=== PATIENT | female | born 1990 | race Caucasian/White ===

== ENCOUNTER → 2020-09-11 09:04 | Outpatient (CLI) | payer BC, SELFPAY ==
--- NOTE | ~2020-09-11 | XR_ITS ---
EXAMINATION: XR pelvis 1-2V EXAM DATE: 09/11/2020 10:35 INDICATION: neck pain, back pain, right knee pain . Pelvic pain. TECHNIQUE: Pelvis frontal projection(s) obtained and reviewed. There is no prior study for compariso n. FINDINGS: There is minimal symmetric bilateral hip primary osteoarthritis. No evidence of hip avascu lar necrosis. Sacroiliac joints are unremarkable. There are no acute fractures or dislocations identi fied. There is no subcutaneous gas. The soft tissue is unremarkable. There are no radiopaque fore ign bodies. IMPRESSION: Minimal symmetric bilateral hip osteoarthritis. Reviewed, dictated and finalized at location B. LUTION SPECIALIST
--- NOTE | ~2020-09-11 | XR_ITS ---
EXAMINATION: XR thoracic spine 2V EXAM DATE: 09/11/2020 10:35 INDICATION: Midline back pain for 1.5 years. TECHNIQUE: Frontal and lateral projections of the thoracic spine as well as lateral swimmers projecti on of the upper thoracic spine for interpretation. There is no prior study for comparison. FINDINGS: There is minimal lower thoracic levoscoliosis. Minimal mid thoracic disc disease. The vert ebral body and disc heights are otherwise well maintained. The vertebral bodies are aligned in the AP dimension. Paraspinal soft tissue is unremarkable. IMPRESSION: 1. Minimal thoracic levoscoliosis. 2. Minimal mid thoracic disc disease. 3. No acute findings. Reviewed, dictated and finalized at location B. ER RIGGER
--- NOTE | ~2020-09-11 | XR_ITS ---
EXAMINATION: XR lumbar spine 2-3V EXAM DATE: 09/11/2020 10:35 INDICATION: Low back pain. TECHNIQUE: Lumber spine frontal, lateral, lateral L5-S1 projections for interpretation. There is no prior study for comparison. FINDINGS: Sacrum, sacroiliac joints, sacral arcuate lines are intact. The vertebral bodies are align ed in the AP dimension. Mild loss of L5-S1 disc height. Vertebral body heights are maintained. Small Schmorl's nodes at some of the endplates. L5 limbus vertebral body. Mild lumbar facet arthropathy. Pa raspinal soft tissue is unremarkable. IMPRESSION: Mild lumbar spondylosis. Reviewed, dictated and finalized at location B. SPLITTER IMPRESSION: Mild lumbar spondylosis.
--- NOTE | ~2020-09-11 | XR_ITS ---
EXAMINATION: XR_CERV2-3V_CR EXAM DATE: 09/11/2020 10:35 INDICATION: Medial cervical spine pain for one year. TECHNIQUE: Cervical spine frontal, lateral, lateral swimmers, and open-mouth odontoid projections. N o prior study. FINDINGS: There is evidence of minimal cervical facet arthropathy. No suspicion of neural foraminal s tenosis. There is no evidence of acute cervical fracture. The odontoid process is intact. Pre-dens space is normal. Prevertebral soft tissue is normal. There are no soft tissue abnormalities identif ied. Short C7 ribs, congenital variant. The vertebral bodies are aligned. Vertebral body and disc h eights are well-maintained. IMPRESSION: 1. Minimal cervical facet arthropathy. 2. Short C7 ribs. Reviewed, dictated and finalized at location B. MENTATION WRITER
--- NOTE | ~2020-09-11 | XR_ITS ---
EXAMINATION: XR knee RT min 4V DATE: 09/11/2020 10:35 INDICATION: Right knee pain. TECHNIQUE: 4 views of right knee were obtained. COMPARISON: None. FINDINGS: Bone alignment is normal. No fracture. There is mild osteoarthritis of patellofemoral opal rtment characterized by a tiny marginal osteophyte. No knee joint effusion. IMPRESSION: 1. Mild right knee osteoarthritis. Reviewed, dictated and finalized at location A. FORCED CONCRETE INSPECTOR
== END ==
PROVIDERS: Visit Provider Chiropractor
DX: M25.551 Pain in right hip (principal); M25.552 Pain in left hip; M47.896 Other spondylosis, lumbar region; M51.34 Other intervertebral disc degeneration, thoracic region; M17.11 Unilateral primary osteoarthritis, right knee
CPT/HCPCS: 72040; 72070; 72100; 72170; 73564

== ENCOUNTER 2024-02-02 13:47 | Outpatient (CLI) | payer BC, SELFPAY ==
--- NOTE | ~2024-02-02 | US_ITS ---
EXAMINATION: US OB transvaginal DATE: 02/02/2024 14:22 INDICATION: Confirmation of viability during first trimester . TECHNIQUE: Real-time pelvic ultrasound utilizing transvaginal probe was performed. The interpreting r adiologist was not present for the study. COMPARISON: None. FINDINGS: The uterus measures 10.7 x 6.1 x 7.1 cm. There is an intrauterine gestational sac. A yolk sac and fe beata pole are identified. The crown rump length measures 1.7 cm, which correlates with an estimated ge stational age of 8 weeks and 1 days. heart motion is identified measuring 172 beats per minute (bpm) by M-mode Doppler. The right ovary measures 3.5 x 2.0 x 3.7 cm. The left ovary measures 3.8 x 3.5 x 4.1 cm. 2.2 cm hypoe choic anechoic likely corpus luteum cyst in the left ovary. There is no free fluid in the pelvis. IMPRESSION: 1. Single living fetus with heart rate of 172 bpm. 2. Gestational age by ultrasound of 8 weeks 1 day(s) +/- 5 day(s) with ultrasound estimated date of delivery (ALYCE) of 09/12/2024. Reviewed, dictated and finalized at location A. IMPRESSION: 1. Single living fetus with heart rate of 172 bpm. 2. Gestational age by ultrasound of 8 weeks 1 day(s) +/- 5 day(s) with ultraso und estimated date of delivery (ALYCE) of 09/12/2024.
== END 2024-02-02 13:48 ==
LOC: MICIMG 13:48
PROVIDERS: PCP Advanced Practice Midwife; Visit Provider Advanced Practice Midwife
DX: O36.80X0 Pregnancy with inconclusive fetal viability, not applicable or unspecified (principal); Z3A.08 8 weeks gestation of pregnancy
CPT/HCPCS: 76817

== ENCOUNTER 2024-04-12 12:48 | Outpatient (CLI) | payer BC, SELFPAY ==
--- NOTE | ~2024-04-12 | US_ITS ---
EXAMINATION: US OB /maternal detail DATE: 04/12/2024 13:38 INDICATION: anatomic survey. TECHNIQUE: Real-time ultrasound of the pelvis was performed. COMPARISON: Ultrasound 02/02/2024 FINDINGS: There is a single living fetus in variable presentation. The placenta is anterior, 4.1 cm from the c ervix. The cervical length is 5.0 cm on transabdominal images, which is normal. heart rate is 1 48 beats per minute (bpm). The amniotic fluid volume is subjectively normal. The following biometric data were obtained: Biparietal diameter (BPD): 4.1 cm; head circumference (HC): 15.5 cm; abdominal circumference (AC): 12 .6 cm; femur length (FL): 2.7 cm. These measurements are concordant. Estimated weight is 228 g +/- 34 g, which correlates with the 47th percentile when 09/12/24 is us ed as estimated date of delivery. As single measurements, these parameters are each equal to the following estimated gestational ages: BPD: 18 weeks 4 days. HC: 18 weeks 3 days. AC: 18 weeks 1 days. FL: 18 weeks 1 days. estimated gestational age based solely on measurements from this exam is 18 weeks 2 days +/- 1 weeks 2 days. The cerebral ventricles, cerebellum, cisterna magna, nuchal fold, and spine are normal. The heart is normal. The diaphragm, stomach, kidneys, and bladder are normal. There are two umbilical arteries to yield a 3-vessel cord. The cord insertion is normal. IMPRESSION: 1. Single living fetus in variable presentation. 2. Estimated weight is 228 g +/- 34 g, which correlates with the 47th percentile when 09/12/24 i s used as estimated date of delivery. This date was set by ultrasound on 02/02/2024. 3. Normal anatomic survey. Reviewed, dictated and finalized at location A. IMPRESSION: 1. Single living fetus in variable presentation. 2. Estimated weight is 228 g +/- 34 g, which correlates with the 47th pe rcentile when 09/12/24 is used as estimated date of delivery. This date was set b y ultrasound on 02/02/2024. 3. Normal anatomic survey.
== END 2024-04-12 12:49 | disposition home or self-care (01) ==
LOC: MICIMG 12:48
PROVIDERS: PCP Obstetrics & Gynecology Gynecology; Visit Provider Obstetrics & Gynecology Gynecology
DX: Z36.9 Encounter for antenatal screening, unspecified (principal)
CPT/HCPCS: 76805

== ENCOUNTER 2024-09-05 15:51 | Outpatient (CLI) | payer BC, SELFPAY ==
[2024-09-05] VITALS (7 sets, daily range): BP systolic 122–138; BP diastolic 71–85; PULSE 82–91
--- OUTSIDE RECORDS SUMMARY | 2024-09-05 15:59 | XMS_ITS | Clinical Summary ---
Author Organization [facility] Care Team Providers Care Research Programmer Name Role Phone Unavailable Primary Care Provider Unavailabl e Social History Tobacco Use Types Packs/Day Years Used Date Smoking Tobacco: Never Assessed Comments Unknown Sex and Gender Information Value Date Recorded Sex Assigned at Not on file Legal Sex Female 2:10 PM CDT Gender Identity Not on file Sexual Orientation Not on file Plan of Treatment Health Maintenance Due Date Last Done Comments Hepatitis C Virus (HCV) Screening 1992 TdaP Immunization 1992 Hepatitis B Immunization (1 of 3 - 19+ 3-dose series) 12/19/2011 Pap Smear 2013 Cervical Cancer Screening (CCS) 2022 HPV/Cotest 2022 Influenza Immunization (#1) 2024 SARS-COV-2 Immunization ( season) 2024 12/24/2020, 11/27/2020 Respiratory Syncytial Virus (RSV) Immunization (Adult) (1 - 1-dose 75+ series) 12/19/2067 Meningococcal Immunization (ACWY) Aged Out No longer eligible b ased on patient's age to complete this topic Pneumococcal Immunization Combined Aged Out No longer eligible b ased on patient's age to complete this topic Rotavirus Immunization Aged Out No lo nger eligible based on patient's age to complete this topic
[2024-09-05 16:23] LABS: Add Urine Microscopic? NO; Appearance Urine Clear (Clear); Bilirubin Urine Negative (Negative); Blood Urine Negative (Negative); Color Urine Yellow (Yellow); Glucose Urine UA Negative (Negative); Ketones Urine Negative (Negative); Leukocyte Esterase Ur Negative LEU/UL (Negative); Nitrate Urine Negative (Negative); Protein Urine Negative (Negative); Specific Grav Ur 1.004 (1.001-1.035); Urobilinogen Urine 0.2 mg/dL (<2.0); pH Urine 6.5 (5.0-9.0)
[2024-09-05 16:25] LABS: Basophils Percent Auto 0.3 % (0.2-1.2); Eosinophils Absolute Auto 0.1 K/mm3 (0-0.3); Eosinophils Percent Auto 0.9 % (0-4.4); Hemoglobin 11.8 g/dL (12.0-15.0); Immature Granulocyte Absolute 0.14 K/mm3 (0.00-0.031); Immature Granulocyte Percent A 1.1 % (0-0.5); Lymphocytes Percent Auto 14.7 % (18.3-44.2); Mean Corpuscular HGB Conc 33.7 g/dl (32-36); Mean Corpuscular Hemoglobin 29.8 pg (26-34); Mean Corpuscular Volume 88.4 fl (80-100); Mean Platelet Volume 10.4 fl (7.4-10.4); Monocytes Absolute Auto 0.7 K/mm3 (0.1-0.6); Monocytes Percent Auto 5.4 % (2.6-8.5); Neutrophils Percent Auto 77.6 % (45.5-73.1); Platelet Count Result 223 k/mm3 (150-375); Red Blood Count 3.96 M/mm3 (4.2-5.4); White Blood Count 12.9 K/mm3 (4.5-10.0)
[2024-09-05 16:38] LABS: Alanine Aminotransferase 14 U/L (6-35); Albumin Level 3.9 g/dL (3.5-5.1); Alkaline Phosphatase 89 U/L (38-126); Anion Gap 12 mmol/L (4-12); Aspartate Amino Transferase 14 U/L (14-36); Bilirubin,Total 0.3 mg/dL (0.2-1.3); Blood Urea Nitrogen 10 mg/dL (7-17); Calcium 9.9 mg/dL (8.4-10.2); Carbon Dioxide 18 mmol/L (22-30); Chloride 105 mmol/L (98-107); Estimated Glomerular Filt Rate > 60; Glucose 89 mg/dL (65-110); Potassium 3.8 mmol/L (3.4-5.0); Sodium 135 mmol/L (137-145); Uric Acid 5.1 mg/dL (2.5-7.5)
[2024-09-05 16:57] LABS: Creatinine Urine 16.2 mg/dL; Total Protein Urine Random 15 mg/dL; Ur Ttl Prot Creatinine Ratio 0.93 mg/mg (0-0.20)
== END 2024-09-05 17:23 | disposition home or self-care (01) ==
LOC: ANHOBOP 15:57 → ANHLDR 15:59
PROVIDERS: Visit Provider Obstetrics & Gynecology Gynecology
DX: O13.9 Gestational [pregnancy-induced] hypertension without significant proteinuria, unspecified trimester (principal); Z3A.00 Weeks of gestation of pregnancy not specified
CPT/HCPCS: 36415; 59025; 80053; 81003; 82570; 84156; 84550; 85025; 99199

== ENCOUNTER 2024-09-06 18:23 | Outpatient (NON) | payer BC, SELFPAY ==
--- OUTSIDE RECORDS SUMMARY | 2024-09-06 18:32 | XMS_ITS | Clinical Summary ---
Author Organization [facility] Care Team Providers Care Cartridge Loading Operator Name Role Phone Unavailable Primary Care Provider [...]
[2024-09-06 19:02] VITALS: BMI 36.4
[2024-09-06 21:03] LABS: Collection Time Urine 24 HOURS
[2024-09-06 21:11] LABS: Total Volume 24 Hour Urine 3750 ml
[2024-09-06 21:18] LABS: Creatinine Clearance Urine 122.4 ml/min (75-125); Creatinine Urine 36.9 mg/dL; Patient Weight 250 Lbs; Total Protein Urine Random 15 mg/dL
[2024-09-06 22:28] LABS: Total Protein Urine 24 Hr 562 mg/24hr (28-141)
[2024-09-07 18:10] LABS: Specific Gravity Ur 1.015
== END 2024-09-06 18:24 | disposition home or self-care (01) ==
LOC: ANHOBOP 18:31
PROVIDERS: Visit Provider Obstetrics & Gynecology Gynecology
DX: O13.9 Gestational [pregnancy-induced] hypertension without significant proteinuria, unspecified trimester (principal); Z3A.00 Weeks of gestation of pregnancy not specified
CPT/HCPCS: 81050; 82575; 84156

== ENCOUNTER 2024-09-09 15:52 | Inpatient (IN) | payer BC, SELFPAY ==
[2024-09-09] VITALS (12 sets, daily range): BP systolic 121–145; BP diastolic 73–98; PULSE 77–95; TEMP 36.7–36.9; BMI 37.0
--- OUTSIDE RECORDS SUMMARY | 2024-09-09 16:27 | XMS_ITS | Clinical Summary ---
Author Organization [facility] Care Team Providers Care Head Of It Name Role Phone Unavailable Primary Care Provider [...]
[2024-09-09 16:47] LABS: Basophils Percent Auto 0.3 % (0.2-1.2); Eosinophils Absolute Auto 0.2 K/mm3 (0-0.3); Eosinophils Percent Auto 1.5 % (0-4.4); Hematocrit 32.4 % (37.0-47.0); Hemoglobin 10.9 g/dL (12.0-15.0); Immature Granulocyte Absolute 0.13 K/mm3 (0.00-0.031); Lymphocytes Absolute Auto 1.86 K/mm3 (0.9-3.2); Lymphocytes Percent Auto 14.9 % (18.3-44.2); Mean Corpuscular HGB Conc 33.6 g/dl (32-36); Mean Corpuscular Hemoglobin 29.5 pg (26-34); Mean Corpuscular Volume 87.6 fl (80-100); Mean Platelet Volume 10.6 fl (7.4-10.4); Monocytes Absolute Auto 0.7 K/mm3 (0.1-0.6); Monocytes Percent Auto 5.3 % (2.6-8.5); Neutrophils Absolute Auto 9.6 K/mm3 (1.3-6.7); Platelet Count Result 232 k/mm3 (150-375); Red Cell Distribution Width 13.2 % (11.5-14.5); White Blood Count 12.5 K/mm3 (4.5-10.0)
[2024-09-09] MEDS: miSOPROStol 25 MCG TABLET BUCCAL ×2 (17:03→21:03)
--- NOTE | 2024-09-09 17:05 | LDADM ---
This patient, Caitlin Jacob, was admitted to Labor/Delivery/Recovery 107 on 09/09/24 at 15:52. Plans for labor, pain management and were discussed with patient. Patient/family oriented to hospital policies and general routines including ID bracelet, bed and alarms, visiting hours, pain management, procedures, bathroom and other care routines, personal items, smoking policy, room service/diet and guest tray routines, infant security routines, and visiting hours. Patient/Family are encouraged to report perceived risks to care and to ask questions if they do not understand what they are told or what they should do. See [facility]BIX for further documentation.
[2024-09-09 17:41] LABS: HIV 1/2 Ab P24 Ag Result Negative (Negative)
[2024-09-09 18:30] LABS: Rapid Plasma Reagin Non-Reactive (NonReactive)
[2024-09-09 22:03] LABS: Alanine Aminotransferase 15 U/L (6-35); Albumin Level 3.5 g/dL (3.5-5.1); Alkaline Phosphatase 93 U/L (38-126); Anion Gap 10 mmol/L (4-12); Aspartate Amino Transferase 17 U/L (14-36); Bilirubin,Total 0.3 mg/dL (0.2-1.3); Blood Urea Nitrogen 11 mg/dL (7-17); Calcium 9.4 mg/dL (8.4-10.2); Carbon Dioxide 14 mmol/L (22-30); Chloride 109 mmol/L (98-107); Estimated CRCL calculation 155 ml/min; Estimated Glomerular Filt Rate > 60; Glucose 101 mg/dL (65-110); Potassium 3.8 mmol/L (3.4-5.0); Sodium 133 mmol/L (137-145)
[2024-09-10] VITALS (244 sets, daily range): BP systolic 101–180; BP diastolic 45–87; PULSE 51–157; RESP 16; TEMP 36.2–37.3; O2SAT 82–100
[2024-09-10] MEDS: miSOPROStol 25 MCG TABLET BUCCAL (01:00)
[2024-09-10] MEDS: LACTATED RINGERS 1,000 ML 125 ML IV CONT ×4 (05:12→21:21)
[2024-09-10] MEDS: OXYTOCIN 30 UNITS/NS 500 ML 30 UNITS/500 ML BAG 6 UNITS IV CONT (05:13)
[2024-09-10] MEDS: fentaNYL CITRATE INJ (*CRX) 100 MCG/2 ML VIAL 50 MCG IV PUSH (05:52)
[2024-09-10] MEDS: fentaNYL CITRATE INJ (*CRX) 100 MCG/2 ML VIAL IV PUSH (07:04)
--- NOTE | 2024-09-10 07:32 | WPDANESEPPF ---
Anes - Initial Pre Proc Eval Procedure: Labor Epidural Date/Time: 09/10/24 07:32 Surgeon: Flory Klein MD Pre Op Diagnosis: IOL Patient Data Age: 33 Gender: F Height: 1.75 m Weight: 113.6 kg Last Vital Signs Temp 36.2 C L 09/10/24 06:18 Pulse 111 H 09/10/24 07:03 BP 122/45 L 09/10/24 07:03 O2 Del Method Room Air 09/09/24 18:34 Allergies Allergy/AdvReac Type Severity Reaction Status Date / Time amoxicillin Allergy Intermediate Rash Verified 09/09/24 18:32 Penicillins Allergy Unknown Rash Verified 09/09/24 18:32 azithromycin (From Zithromax Allergy Rash Verified 09/09/24 18:32 Z-Jaylon) Home Medications ?Medication ?Instructions ?Recorded ?Confirmed ?Type aspirin 81 mg capsule 81 mg PO DAILY 08/13/24 09/09/24 History calcium carb-ergocalciferol (vit 1 tablet PO DAILY 08/13/24 09/09/24 History D2) 600 mg calcium-200 unit tablet loratadine 10 mg capsule (Allergy 10 mg PO DAILY 08/13/24 09/09/24 History Relief (loratadine)) magnesium glycinate 400 mg PO DAILY 08/13/24 09/09/24 History vit no.95-ferrous 1 tablet PO DAILY 08/13/24 09/09/24 History fumarate 28 mg-folic acid 800 mcg tablet () Laboratory Tests 09/09/24 09/09/24 16:10 16:33 WBC 12.5 H K/mm3 (4.5-10.0) RBC 3.70 L M/mm3 (4.2-5.4) Hgb 10.9 L g/dL (12.0-15.0) Hct 32.4 L % (37.0-47.0) MCV 87.6 fl (80-100) MCH 29.5 pg (26-34) MCHC 33.6 g/dl (32-36) RDW 13.2 % (11.5-14.5) Plt Count 232 k/mm3 (150-375) MPV 10.6 H fl (7.4-10.4) Immature Gran % (Auto) 1.0 H % (0-0.5) Neut % (Auto) 77.0 H % (45.5-73.1) Lymph % (Auto) 14.9 L % (18.3-44.2) [place] % (Auto) 5.3 % (2.6-8.5) Eos % (Auto) 1.5 % (0-4.4) Baso % (Auto) 0.3 % (0.2-1.2) Lymph # (Auto) 1.86 K/mm3 (0.9-3.2) [place] # (Auto) 0.7 H K/mm3 (0.1-0.6) Eos # (Auto) 0.2 K/mm3 (0-0.3) Baso # (Auto) 0.0 K/mm3 (0.0-0.1) Abs Immat Gran (auto) 0.13 H K/mm3 (0.00-0.031) Absolute Neuts (auto) 9.6 H K/mm3 (1.3-6.7) Absolute Nucleated RBC 0.000 K/mm3 (0.0-0.012) Nucleated RBC % 0.0 % (0.0-0.2) Sodium 133 L mmol/L (137-145) Potassium 3.8 mmol/L (3.4-5.0) Chloride 109 H mmol/L (98-107) Carbon Dioxide 14 L mmol/L (22-30) Anion Gap 10 mmol/L (4-12) BUN 11 mg/dL (7-17) Creatinine 0.60 L mg/dL (0.7-1.0) Estim Creat Clear Calc 155 ml/min Estimated GFR > 60 (59 - ) Glucose 101 mg/dL (65-110) Uric Acid 6.0 mg/dL (2.5-7.5) Calcium 9.4 mg/dL (8.4-10.2) Total Bilirubin 0.3 mg/dL (0.2-1.3) AST 17 U/L (14-36) ALT 15 U/L (6-35) Alkaline Phosphatase 93 U/L (38-126) Total Protein 7.0 g/dL (6.3-8.2) Albumin 3.5 g/dL (3.5-5.1) RPR Non-reactive (NonReactive) HIV 1&2 Ab/P24 Ag 4thGn Negative (Negative) Blood Type A Positive Antibody Screen Negative : gestational age (ALYCE 09/12/24) Patient hx anesthesia problems: none Family hx anesthesia problems: none Results Review: All pre-operative results and documents have been reviewed as part of the pre-operative evaluation. [facility] Family History Family History Father Kidney failure Social History Social History Smoking status: Never smoker Second hand tobacco smoke exposure: Yes Alcohol intake: current Substance use: never Do You Feel Safe in your Home?: Yes Lack of Transportation: No Lack of Food: Never True Current Housing: I Have Housing Concerned About Future Housing: No Difficulty Paying Gas/Electric Bills: No Difficulty Paying for Meds: No Currently Unemployed: No Education: Trade/Vocational Certificate Difficulty w/ Childcare or Family Care: No Spiritual care concerns: No Anes - Eval Final PreProcedure Day of Procedure 09/10/24 07:32 Patient weight: obese Heart: regular rate and rhythm Lungs: normal air movement Airway: Mallampati scale Neurological: alert and oriented Last oral intake: >/= 8 hours ASA classification: II Emergent: no Anesthetic plan: proceed Anesthesia type and monitoring: regional epidural Results Review: All pre-operative results and documents have been reviewed as part of the pre-operative evaluation. Informed Consent: The patient's anesthetic plan and its attendant risks and benefits were discussed with the patient/family/POA. Questions were solicited and answers provided to the satisfaction of the patient/family/POA.
--- NOTE | 2024-09-10 07:36 | WPDOBADMIT ---
Obstetrics - Admit Note Admission Note: record reviewed. No pertinent additions to the history and/or any subsequent changes in the physical findings that are not consistent with the expected course of the were found. Additions to the history and/or subsequent changes in the physical findings follow. Here for MIL for preeclampsia. BP stable. No PIH sx. cytotec overnight and now in labor and SROM. Cervix last check 1-2 per RN. Continue Pitocin. Prepping for epidural now as painful contractions. FHTs Cat. I.
--- NOTE | 2024-09-10 12:28 | PM.OBPNLAB ---
Pain Control Date/time seen: 09/10/24 12:28 Pain control: epidural Pelvic Exam Dilation (cm): 3 (3-4) Effacement (%): 80 station: -2 Amniotic membrane status: Ruptured (AROM forebag with large mucus and clear fluid) Contractions Monitor mode: External Contraction pattern: Regular Status status: Category l Assessment and Plan Assessment: induction ongoing Plan: continuous present management
[2024-09-10] MEDS: ACETAMINOPHEN 500 MG TABLET 1000 MG PO (19:29)
[2024-09-10] MEDS: CALCIUM CARBONATE (TUMS) 500 MG (200 MG ELEMENTAL) PO (22:28)
[2024-09-11] VITALS (42 sets, daily range): BP systolic 73–139; BP diastolic 48–92; PULSE 66–113; RESP 16–18; TEMP 36.4–37.3; O2SAT 95–100
[2024-09-11] MEDS: ceFAZolin 3 GM/D5W 100 ML 100 ML IVPB (01:07)
--- NOTE | 2024-09-11 02:29 | PM.OBPRVD ---
OB - Vaginal Delivery Note Procedure Delivery date: 09/11/24 Events: Preeclampsia w/o severe features Intrapartal Events: Arrest of Descent Induction method: Per Misoprostol Protocol and Per Pitocin Protocol Delivery monitor: External FHT and Internal Uterine Route of delivery: Episiotomy description: None Laceration Description: Perineal - 2nd Degree (Bilateral deep vaginal sulcus laceration meeting in middle for Y laceration) Delivery repair: vicryl (3-0) Specimen: Yes (placenta) Quantitative Blood Loss (ml): 600 (Most blood from laceration. Uterus firm throughout.) Anesthesia type: Epidural Disposition: Floor Complications: No immediate complications Narrative: Patient with prolonged pushing phase. Pushed for 1 1/2 hours x 2 with rest in between. Then a longer rest and 1 hour pushing. Most descent in last hour. Baby Date of : 09/11/24 Gestational Age by Date: 39 Infant gender: Male Weight (pounds): 8 Weight (ounces): 6 presentation: vertex position: Left Occiput Posterior Placenta delivery description: Spontaneous Cord Vessel Description: 3 Vessels and Delayed Cord Clamping score one minute: 8 score five minutes: 9
--- NOTE | 2024-09-11 02:33 | PM.OBDSVD ---
DS: Admitting Diagnosis Discharge Date 09/14/24 Admitting Diagnosis IUP 39 4/7 for MIL preeclampsia DS: Discharge Diagnosis Discharge Diagnosis (1) (normal spontaneous vaginal delivery): Code(s): O80 - Encounter for full-term uncomplicated delivery Status: Acute (2) Preeclampsia: Code(s): O14.90 - Unspecified pre-eclampsia, unspecified trimester Status: Acute OB - DS: Summary OB Procedures : NST, PIH Mgmt and Ultrasound OB Procedures Intrapartum: Spontaneous Vag Delivery OB Procedures: : None Peripartum Data Delivery Method: Natural Vaginal Laceration Description: Perineal - 2nd Degree (Bilateral deep vaginal sulcus laceration meeting in middle for Y laceration) Episiotomy description: None complications: none Status at Discharge Functional status at discharge: independent ambulation Overall status at discharge: patient is progressing back to baseline Time Spent with Patient Time attestation: Total time spent providing and/or coordinating discharge services: Discharge Plan Discharge Attending physician on discharge: Flory Klein Discharging Clinician: Flory Klein Anticipated Discharge Date/Time: 09/13/24 02:35 Patient Disposition: Home, Self-Care Activity: may shower and pelvic rest Diet: regular Patient Instructions: Antibiotic Form Patient Language: Bulgarian Stand Alone Forms: General Discharge Information Follow-up/Referrals: Flory Klein MD [Physician] - 1 Week (6 weeks) Discharge Medications: Continued magnesium glycinate 100 mg magnesium capsule 400 mg PO DAILY calcium carbonate-vitamin D2 600 mg calcium- 200 unit tablet 1 tablet PO DAILY PNV cmb#95-ferrous fumarate-FA [] 28 mg iron- 800 mcg tablet 1 tablet PO DAILY Allergy Relief (loratadine) 10 mg capsule 10 mg PO DAILY Discontinued aspirin 81 mg capsule 81 mg PO DAILY Date of admission: 09/09/24 15:52 Primary Care Provider: UNKNOWN,DOCTOR Admitting Provider: Flory Klein Attending physician on admission: Flory Klein Condition: Stable
[2024-09-11] MEDS: OXYTOCIN 30 UNITS/NS 500 ML 30 UNITS/500 ML BAG 125 UNITS IV CONT (02:36)
[2024-09-11] MEDS: WITCH HAZEL 40 PADS 1 PAD TOPICAL ×2 (04:56→19:02)
[2024-09-11] MEDS: BENZOCAINE 20% AER SPR (*SP) 56 GM CAN 1 SPRAY TOPICAL (04:56)
[2024-09-11] MEDS: IBUPROFEN 600 MG TABLET PO ×2 (05:44→19:03)
--- NOTE | 2024-09-11 08:54 | PC.NURSE ---
0620 Introductions were made, then consulted with patient to assess needs related to . Mother led the conversation with her?plans to feed?her and the?experience so far. Encouraged understanding of the benefits of skin to skin (demonstrating unwrapping infant and placing upright on her chest), stimulating with massage touch, changing positions to encourage wakefulness, how to watch for early feeding cues, responsive feeding, feeding on demand (aiming for 8-12 times in 24 hours, about every 2-3 hours), milk production, building/maintaining a milk supply, duration of feeding, signs of adequate intake/output and how to record on the feeding sheet. Mother works well with her with encouragement and education. Reviewed positioning and ear, shoulder, hip alignment, supporting the breast to facilitate a deep latch, asymmetrical latch (off-center), leading with the chin with a big, open, wide gape and body close to mother. Mother had used nipple shield downstairs in labor per primary night RN. This morning @ 0635 feeding, we attempted to latch baby without the shield but mother's nipples are very soft and go inward when baby attempts to latch, he is not able to get ahold of nipple. Baby latches well with shield and mother can feel tugging and pulling at both nipples. RN advised mother of nipple shield policy, she did bring her own breast pump if needed. After baby was on her left breast with the shield for a few minutes, we did attempt to re-latch without the shield but baby was unable, shield reapplied. Education given to the mother of how to visualize the suckling (with good rocking jaw motion), swallows (dropping of the lower jaw) and how to listen for drinking at the breast (the ka sound). was [able] to maintain latch without pain to mother protecting the nipple with optimal positioning and latching. Reviewed comfort measures of healing with a warm, wet washcloth to rinse breast, then leave open to air-dry, good handwashing when or touching the breast/nipples to prevent infection. Mother voiced understanding of skin to skin, stimulating with massage touch, responsive feedings, hand expressed colostrum, talking to to encourage if it has been 2 -2.5 hours since the start of the last , to call if does not latch, or if there is discomfort with . Resources used for education were facilitated with the [visual educational handouts/ tool/mom and baby guide], Inpatient/outpatient resources provided with business card, feeding sheet, name written on the communication board, and the mom/baby guide. Parents voiced understanding of information, demonstrated learning and will call if there is a request for assistance. Reported to the Primary RN.
--- NOTE | 2024-09-11 08:56 | PC.NURSE ---
On 09/11/24, the student, Ming Escalona, provided care and completed [facility] documentation on this patient. I have reviewed the student's documentation and agree with the findings.
[2024-09-11] MEDS: ACETAMINOPHEN 325 MG TABLET 650 MG PO (10:10)
[2024-09-11] MEDS: MULTIVIT/MIN/PREN/FOL AC/IRON TABLET 1 TAB PO (10:11)
[2024-09-11] MEDS: DOCUSATE SODIUM 100 MG CAPSULE PO ×2 (10:11→19:02)
--- NOTE | 2024-09-11 15:30 | PC.NURSE ---
1135 Mother called RN to room to assist with latch, baby attempted for a few mins on the left breast in football w/o the nipple shield and could not maintain his latch, nipple everted but soft. Nipple shield applied and baby latched optimally, RN encouraged mother to switch breasts after 15 mins and call out if she was not able to latch baby to her right breast. Nipple shield handout and admission packet provided to mother. Reviewed good handwashing, cleaning the nipple shield and the appropriate way to apply and use as a tool. Discussed with mom the nipple shield precautions, possible complications associated with the risks and benefits. Reviewed practicing with a nipple shield, then without and how to protect the milk supply and production. Mom and baby guide referred to as a resource for outpatient services, community resources and when to call a provider. Mom voiced understanding of the importance of hand expression, nipple stimulation and initiating a pumping schedule if infant continues to nurse with the shield. Reported to the Primary RN. 1220 RN returned to room, mother never called out. Per mother baby nursed on her left breast with the shield for 15 mins and she was holding baby skin to skin, she had not attempted to latch on the other breast. RN offered to assist her, baby was sleepy, attempted with and w/o the shield for 5 mins or so. RN reminded mother that this was the third time that she had used the nipple shield and she should start using the breast pump per hospital policy to protect her milk supply. Per mother she would like to eat her lunch and will then call out to start pumping. She does have her own breast pump at home but would like to use the hospital pump while here. 1350 RN took breast pump, kit, handouts and measuring tool into the room to start mother pumping, she still had not called out from finishing her lunch. She now states that she has family coming and wishes to start using the breast pump after her visitors leave. 1425 Primary RN in room, advised mother it was time to feed the baby. Visitors left while mother was going to feed. RN called to room to assist with latch. Baby attempted with very good effort to latch to mother's left breast in football position for a few mins, mother was leaking colostrum. Baby unable to maintain latch and nipple shield applied, baby then latched optimally. 1500 RN to room, mother called for assistance to help swaddle the baby. Per mom, baby nursed with the shield for 25 mins, her family is in the room now and she will pump after they leave.
--- NOTE | 2024-09-11 17:57 | PC.NURSE ---
1705 RN went in room, family had left. Mother ready to set up breast pump but baby is now due to nurse. RN to set up pump so that it is ready to use after she breast feeds. Instructions given on cleaning, care, usage, that there should be no pain, pumping schedule for milk production, collection, and storage of human milk. Patient was assessed for correct placement, flange size (Right nipple: 22mm, using size 27 flange/Left nipple: 24mm, using size 30 flange), to pump for comfort and nipple stretching/stimulation for adequate milk production every 3 hours (8 times in 24 hours) 1-2 times at night. Parents are encouraged to record the pumping schedule on the feeding sheet.?Mother voiced understanding of the education shared along with mom/baby guide and the pump measurement, flange fit handout for additional resource information. RN assisted mother with latch, leaking colostrum, baby gave great effort and is improving with each feeding with attempting to latch without the nipple shield, mother attempted for about 5 mins without and then baby latched optimally with the shield, RN and mother heard many swallows. Reported to the Primary RN.
[2024-09-11] MEDS: SIMETHICONE 80 MG TAB.CHEW PO (19:02)
[2024-09-12] VITALS (13 sets, daily range): BP systolic 110–128; BP diastolic 63–82; PULSE 69–92; RESP 16–83; TEMP 36.3–37.2; O2SAT 98–99
[2024-09-12 06:02] LABS: Hematocrit 21.7 % (37.0-47.0); Hemoglobin 7.2 g/dL (12.0-15.0)
--- NOTE | 2024-09-12 07:48 | PM.OBPNVD ---
OB - PN: Subj Subjective Date/time seen: 09/12/24 07:48 Interval history: tired and weak but not dizzy with ambulation Patient comments: no complaints and pain well controlled [place] baby status: doing well OB - PN: Obj Data Labs 09/12/24 04:55 09/09/24 16:10 Labs: Laboratory Results - last 24 hr 09/12/24 04:55 Hgb 7.2 L D Hct 21.7 L OB - PN A/P Assessment and Plan (1) Preeclampsia: Code(s): O14.90 - Unspecified pre-eclampsia, unspecified trimester Status: Acute Assessment and Plan: BP improved this last 12 hours not a good diuresis yet (2) Anemia: Code(s): D64.9 - Anemia, unspecified Status: Acute Assessment and Plan: Reviewed H/H and option of blood transfusion. Pros/cons discussed. Will transfuse 2 units PRBC Plan day: 1 Time Spent With Patient Time: Total time spent is greater than 50% in coordination of care (as documented) at patient's floor/unit and/or counseling patient: Exam : Bimanual exam- vagina & uterus: other (Uterus firm, nt @U)
[2024-09-12] MEDS: ACETAMINOPHEN 325 MG TABLET 650 MG PO (08:30)
[2024-09-12] MEDS: SODIUM CHLORIDE 0.9% IV 250 ML 30 ML IV CONT (08:32)
[2024-09-12] MEDS: MULTIVIT/MIN/PREN/FOL AC/IRON TABLET 1 TAB PO (08:32)
[2024-09-12] MEDS: POLYSACCHARIDE IRON COMPLEX 150 MG CAPSULE PO (08:32)
[2024-09-12] MEDS: DOCUSATE SODIUM 100 MG CAPSULE PO (08:32)
[2024-09-12] MEDS: IBUPROFEN 600 MG TABLET PO (08:38)
[2024-09-13] VITALS (7 sets, daily range): BP systolic 117–137; BP diastolic 75–92; PULSE 70–92; RESP 16–20; TEMP 36.2–36.8; O2SAT 97–99
--- NOTE | 2024-09-13 08:10 | PC.NURSE ---
Request by primary RN to discuss feeding plan with patient due to 10% weight loss and physician order. Patient states that baby is latching well and not using the nipple shield and that she does not intend to give any formula supplementation. Patient says she gets a good amount of milk with pumping and is leaking milk. Reported this back to the primary RN and medical coordinator pesticide use and told patient that we can review feeding again once she has spoken with the baby's doctor.
[2024-09-13] MEDS: DOCUSATE SODIUM 100 MG CAPSULE PO ×2 (08:11→16:56)
[2024-09-13] MEDS: POLYSACCHARIDE IRON COMPLEX 150 MG CAPSULE PO ×2 (08:11→16:56)
[2024-09-13] MEDS: MULTIVIT/MIN/PREN/FOL AC/IRON TABLET 1 TAB PO (08:11)
[2024-09-13 08:32] LABS: Hematocrit 29.2 % (37.0-47.0); Hemoglobin 9.6 g/dL (12.0-15.0); Mean Corpuscular HGB Conc 32.9 g/dl (32-36); Mean Corpuscular Hemoglobin 28.7 pg (26-34); Mean Corpuscular Volume 87.2 fl (80-100); Platelet Count Result 186 k/mm3 (150-375); Red Blood Count 3.35 M/mm3 (4.2-5.4); Red Cell Distribution Width 14.6 % (11.5-14.5); White Blood Count 12.6 K/mm3 (4.5-10.0)
--- NOTE | 2024-09-13 10:40 | P.PNOB_ITS ---
OB - PN: Subj Subjective Date/time seen: 09/13/24 10:40 Patient comments: no complaints baby status: other (lost weight per RN peds does not want to dc home today) OB - PN: Obj Data Labs 09/13/24 08:22 09/09/24 16:10 Labs: Laboratory Results - last 24 hr 09/09/24 09/13/24 16:33 08:22 WBC 12.6 H RBC 3.35 L Hgb 9.6 L Hct 29.2 L MCV 87.2 MCH 28.7 MCHC 32.9 RDW 14.6 H Plt Count 186 MPV 10.0 Blood Type A Positive Antibody Screen Negative Crossmatch See Detail OB - PN A/P Assessment and Plan (1) Preeclampsia: Code(s): O14.90 - Unspecified pre-eclampsia, unspecified trimester Status: Acute Assessment and Plan: Starting to have diuresis. BP's good. Will observe and dc tomorrow if stable. (2) Anemia: Code(s): D64.9 - Anemia, unspecified Status: Acute Assessment and Plan: Feeling stronger post 2 units PRBC. Bleeding appropriate. Plan iron. Plan day: 2 Plan: routine care Time Spent With Patient Time: Total time spent is greater than 50% in coordination of care (as documented) at patient's floor/unit and/or counseling patient: Exam 2 : Bimanual exam- vagina & uterus: other (Uterus firm, nt @U)
--- NOTE | 2024-09-13 13:45 | PC.NURSE ---
Met with patient to ensure she understands the feeding plan as ordered by the etymology professor. She is feeling confident with adding supplementation after each . We also discussed that the latch is a little pinchy on the left and that positioning and making a bite for baby can help (obtaining a deep latch usually fixes pain), although sometimes babies just need to grow a little. She does not have any nipple damage. She is not using the nipple shield at all. Encouraged mom to call out for assistance with latch, especially on the side that is more difficult. Mom seems agreeable to all that we discussed and will call out as needed. Reported to primary RN.
[2024-09-14 04:24] VITALS: BP 123/73
[2024-09-14 07:30] VITALS: PULSE 72; RESP 16; TEMP 36.2; O2SAT 100
[2024-09-14] MEDS: MULTIVIT/MIN/PREN/FOL AC/IRON TABLET 1 TAB PO (07:34)
[2024-09-14] MEDS: IBUPROFEN 600 MG TABLET PO (07:34)
[2024-09-14] MEDS: DOCUSATE SODIUM 100 MG CAPSULE PO (07:34)
[2024-09-14] MEDS: POLYSACCHARIDE IRON COMPLEX 150 MG CAPSULE PO (07:34)
--- NOTE | 2024-09-14 10:25 | P.PNOB_ITS ---
OB - PN: Subj Subjective Date/time seen: 09/14/24 10:25 Patient comments: no complaints and pain well controlled baby status: doing well (weight and feeding better) OB - PN: Obj Data Labs 09/13/24 08:22 09/09/24 16:10 OB - PN A/P Assessment and Plan (1) Preeclampsia: Code(s): O14.90 - Unspecified pre-eclampsia, unspecified trimester Status: Acute Assessment and Plan: blood pressure is much improved no preeclamptic symptoms Plan day: 3 Plan: routine care and discharge home Time Spent With Patient Time: Total time spent is greater than 50% in coordination of care (as documented) at patient's floor/unit and/or counseling patient: Exam 2 : Bimanual exam- vagina & uterus: other (Uterus firm, nt @U)
--- NOTE | 2024-09-14 11:00 | PC.NURSE ---
Consulted with mother concerning needs and she shared her ability to independently latch infant. Ineffective feeding plan initiated yesterday due to infant weight loss. Mother is feeding appropriately for growth of and understands stimulating to eat if needed. has had appropriate feedings in the last 24 hours meets the outcomes for weight, output, blood sugar and jaundice at this time. Reinforced understanding of milk production, transition of milk, signs of adequate intake, transition of stool, prevention/relief of engorgement, plugged ducts, mastitis, responsive watching for feeding cues, community resources (declines [facility] referral), and when to call a provider using the resource of the feeding sheet along with the mom and baby guide. She has a breast pump for home use. Mother voiced understanding of the information shared, is confident to continue effectively her at home, when to call for assistance, denies any additional assistance or education at this time. Reported to the Primary RN.
[2024-09-14 12:15] VITALS: BP 133/82; PULSE 84; RESP 18; O2SAT 98
--- NOTE | 2024-09-14 13:16 | PC.NURSE ---
Patient viewed the discharge video Mother & Baby Care, The First Two Weeks . Patient was given the opportunity and encouraged to ask questions. Patient verbalized understanding of information shared and has been given the mother/baby guide for home reference.
[2024-09-16 10:22] VITALS: BP 134/79; PULSE 84; RESP 18; TEMP 36.9; O2SAT 100
--- NOTE | 2024-09-16 11:15 | PC.NURSE ---
Mother here for her follow up appointment with the follow up nurse, this RN was called to see mother as she had some questions regarding baby latching. Introductions were made, then consulted with patient to assess needs related to . Discussed with mother her?plans to feed?her infant and the?experience so far. Per mother, baby started with a nipple shield and then was able to latch without, baby had weight loss and was needing to be supplemented and now baby has issues with his latch, she says that baby has been mostly receiving bottles of pumped breast milk and is gaining weight. Mother says he doesn't open up wide enough, asked for tips on how to help him open his mouth wider. RN advised mother that she should hold baby and support head behind the neck and not directly behind his head so he can lean back and latch with a wider gape. Mother has excellent support at home and she is also using bottles and pacifiers that are for breastfed babies to encourage baby to open wider for his latch. RN encouraged mother to keep trying to latch baby with every feed and then resources provided for outpatient services with the feeding sheet, follow up instructions and the mom/baby guide. Mother voiced understanding of information and will call if there is a request for assistance.
== END 2024-09-14 14:54 | disposition home or self-care (01) | DRG 807 ==
LOC: ANHLDR 09-11 02:36 → ANHOB2 09-11 05:17
PROVIDERS: Admitting Provider Obstetrics & Gynecology Gynecology; Visit Provider Obstetrics & Gynecology Gynecology
DX: O14.94 Unspecified pre-eclampsia, complicating childbirth (principal); Z37.0 Single live birth; Z3A.39 39 weeks gestation of pregnancy; O70.1 Second degree perineal laceration during delivery; O62.1 Secondary uterine inertia; O90.81 Anemia of the puerperium; D64.9 Anemia, unspecified
CPT/HCPCS: 36415; 36430; 80053; 84550; 85014; 85018; 85025; 85027; 86592; 86703; 86850; 86900; 86901; 86923; 88307; A9270; G0432; J0690; J2590; J2795; J3010; J7050; J7120; P9016

== ENCOUNTER 2024-10-07 17:21 | Outpatient (CLI) | payer BC, SELFPAY ==
[2024-10-07 17:59] VITALS: BP 137/84; PULSE 92
[2024-10-07 18:00] VITALS: TEMP 37.5
[2024-10-07 18:01] VITALS: BP 138/82; PULSE 91
[2024-10-07 18:07] LABS: Basophils Percent Auto 0.3 % (0.2-1.2); Eosinophils Absolute Auto 0.2 K/mm3 (0-0.3); Eosinophils Percent Auto 2.6 % (0-4.4); Hematocrit 37.1 % (37.0-47.0); Immature Granulocyte Absolute 0.03 K/mm3 (0.00-0.031); Immature Granulocyte Percent A 0.3 % (0-0.5); Mean Corpuscular HGB Conc 32.3 g/dl (32-36); Mean Corpuscular Hemoglobin 28.4 pg (26-34); Mean Corpuscular Volume 87.9 fl (80-100); Monocytes Absolute Auto 0.6 K/mm3 (0.1-0.6); Monocytes Percent Auto 6.4 % (2.6-8.5); Neutrophils Absolute Auto 7.2 K/mm3 (1.3-6.7); Neutrophils Percent Auto 79.4 % (45.5-73.1); Platelet Count Result 272 k/mm3 (150-375); Red Blood Count 4.22 M/mm3 (4.2-5.4); White Blood Count 9.1 K/mm3 (4.5-10.0)
[2024-10-07 18:16] VITALS: BP 137/82; PULSE 87
[2024-10-07 18:31] VITALS: BP 134/82; PULSE 88
[2024-10-07 18:38] LABS: Alanine Aminotransferase 22 U/L (6-35); Albumin Level 4.3 g/dL (3.5-5.1); Alkaline Phosphatase 85 U/L (38-126); Anion Gap 14 mmol/L (4-12); Aspartate Amino Transferase 18 U/L (14-36); Bilirubin,Total 0.5 mg/dL (0.2-1.3); Blood Urea Nitrogen 11 mg/dL (7-17); Carbon Dioxide 21 mmol/L (22-30); Chloride 104 mmol/L (98-107); Estimated Glomerular Filt Rate > 60; Glucose 96 mg/dL (65-110); Potassium 4.1 mmol/L (3.4-5.0); Sodium 139 mmol/L (137-145); Uric Acid 5.5 mg/dL (2.5-7.5)
[2024-10-07 18:46] VITALS: BP 131/84; PULSE 92
== END 2024-10-07 19:08 | disposition home or self-care (01) ==
LOC: ANHOBOP 17:30 → ANHLDR 17:32
PROVIDERS: Obstetrics & Gynecology; Visit Provider Obstetrics & Gynecology Gynecology
DX: O13.5 Gestational [pregnancy-induced] hypertension without significant proteinuria, complicating the puerperium (principal)
CPT/HCPCS: 36415; 80053; 84550; 85025